=== PATIENT | female | born 1930 | race Asian ===

== ENCOUNTER → 2016-12-23 | Outpatient (CLI) | payer MEDICARE, OTHER ==
[~2016-12-23] MED LIST: ACAR50TA PO; ACLI400A2 IH; ALLO100T PO; AMLO-511 PO; CALC-789 PO; CARV25TA32 PO; DIGO125T71 PO; DSS100 PO; FURO20 PO; FURO40TA5 PO; HYDR25TA84 PO; MOME17N NS; MONT10TA21 PO; MULT1CAP32 PO; OMEP20CA10 PO; PROME5L PO; ROSU10 PO; SITA50 PO; WARF1TAB6 PO; WARF2 PO
[2016-12-23 09:03] LABS: BASOPHILS # (AUTO) 0.04 K/uL (0.00-0.20); EOSINOPHILS # (AUTO) 0.07 K/uL (0.00-0.70); EOSINOPHILS % (AUTO) 1.48 % (1.0-6.0); HEMATOCRIT 31.9 % (36-46); HEMOGLOBIN 10.4 g/dL (12.0-16.0); LYMPHOCYTES # (AUTO) 0.7 K/uL (1.0-4.8); LYMPHOCYTES % (AUTO) 16.2 % (22.0-44.0); MEAN CORPUSCULAR HEMOGLOBIN 28.5 pg (26.0-34.0); MEAN CORPUSCULAR HGB CONC 32.6 G/dL (31.0-37.0); MEAN CORPUSCULAR VOLUME 87 fL (80-100); MONOCYTES # (AUTO) 0.3 K/uL (0.1-1.0); NEUTROPHILS # (AUTO) 3.4 K/uL (1.8-7.7); NEUTROPHILS % (AUTO) 75.3 % (40.0-70.0); PLATELET COUNT (AUTO) 148 K/uL (150-450); RED BLOOD CELL COUNT(AUTO) 3.66 MIL/uL (4.00-5.20); RED CELL DISTRIBUTION WIDTH 17.9 % (11.5-14.5); WHITE BLOOD COUNT (AUTO) 4.5 K/uL (4.5-11.0)
[2016-12-23 09:14] LABS: RBC MORPHOLOGY COMMENT ABNORMAL RBC MORPH
[2016-12-23 09:31] LABS: HEMOGLOBIN A1C 6.8 % (4.5-6.2)
[2016-12-23 09:41] LABS: ALANINE AMINOTRANSFERASE 17 U/L (12-78); ALBUMIN 3.8 g/dL (3.4-5.0); ANION GAP 8 mmol/L (8-16); ASPARTATE AMINOTRANSFERASE 25 U/L (15-37); BILIRUBIN,TOTAL 0.6 mg/dL (0.1-1.0); CALCIUM, TOTAL 8.8 mg/dL (8.8-10.5); CARBON DIOXIDE 29 mmol/L (22-29); CHLORIDE 103 mmol/L (98-107); CHOL/HDL RATIO 2.6 (3.9-5.7); DIGOXIN < 0.20 ng/mL (0.90-2.00); GLOMERULAR FILTR. RATE CALC 33 mL/min (>60); POTASSIUM 4.2 mmol/L (3.5-5.1); SODIUM SERUM 140 mmol/L (136-145); THYROID STIMULATING HORMONE 2.56 uIU/mL (0.36-3.74); TOTAL PROTEIN, SERUM 8.3 g/dL (6.4-8.2); UREA NITROGEN, BLOOD 35 mg/dL (7-18)
[2016-12-23 09:53] LABS: URIC ACID 7.3 mg/dL (2.6-7.2)
== END | disposition home or self-care (01) ==
LOC: LABPV 07:12
PROVIDERS: ATTEND Internal Medicine Cardiovascular Disease
DX: I11.0 Hypertensive heart disease with heart failure (principal); I50.9 Heart failure, unspecified; E11.8 Type 2 diabetes mellitus with unspecified complications; E55.9 Vitamin D deficiency, unspecified
CPT/HCPCS: 82306; 83036; 84439; 84443; 84550

== ENCOUNTER 2017-01-31 15:18 | Inpatient (IN) | payer MEDICARE, OTHER ==
[~2017-01-31] VITALS: Ht 162.6 cm; Wt 60.5 kg
[~2017-01-31 15:18] MED LIST changes: -FURO40TA5 PO; -WARF2 PO
[2017-01-31 16:02] LABS: GLUCOSE COMMENT 1 Repeated; GLUCOSE,POINT OF CARE 181 MG/DL (70-110)
[2017-01-31 18:36] LABS: BASOPHILS % (AUTO) 0.6 % (0.0-2.0); EOSINOPHILS % (AUTO) 1.4 % (1.0-6.0); HEMATOCRIT 30.3 % (36-46); HEMOGLOBIN 9.6 g/dL (12.0-16.0); LYMPHOCYTES # (AUTO) 0.9 K/uL (1.0-4.8); LYMPHOCYTES % (AUTO) 16.5 % (22.0-44.0); MEAN CORPUSCULAR HEMOGLOBIN 28.2 pg (26.0-34.0); MEAN CORPUSCULAR HGB CONC 31.5 G/dL (31.0-37.0); MEAN CORPUSCULAR VOLUME 90 fL (80-100); MONOCYTES # (AUTO) 0.4 K/uL (0.1-1.0); MONOCYTES % (AUTO) 8.2 % (2.0-9.0); NEUTROPHILS # (AUTO) 3.8 K/uL (1.8-7.7); NEUTROPHILS % (AUTO) 73.3 % (40.0-70.0); PLATELET COUNT (AUTO) 215 K/uL (150-450); RED BLOOD CELL COUNT(AUTO) 3.38 MIL/uL (4.00-5.20); RED CELL DISTRIBUTION WIDTH 17.8 % (11.5-14.5); WHITE BLOOD COUNT (AUTO) 5.2 K/uL (4.5-11.0)
[2017-01-31 18:37] LABS: RBC MORPHOLOGY COMMENT ABNORMAL RBC MORPH
[2017-01-31 18:44] LABS: ANION GAP 8 mmol/L (8-16); CALCIUM, TOTAL 8.7 mg/dL (8.8-10.5); CARBON DIOXIDE 30 mmol/L (22-29); CHLORIDE 106 mmol/L (98-107); CREATININE 1.79 mg/dL (0.60-1.30); GLOMERULAR FILTR. RATE CALC 27 mL/min (>60); POTASSIUM 3.8 mmol/L (3.5-5.1); SODIUM SERUM 144 mmol/L (136-145); UREA NITROGEN, BLOOD 36 mg/dL (7-18)
[2017-01-31 18:55] LABS: ALANINE AMINOTRANSFERASE 26 U/L (12-78); ALBUMIN 3.7 g/dL (3.4-5.0); ASPARTATE AMINOTRANSFERASE 21 U/L (15-37); BILIRUBIN,TOTAL 0.6 mg/dL (0.1-1.0); CREATINE KINASE, TOTAL 48 U/L (26-192); TOTAL PROTEIN, SERUM 8.4 g/dL (6.4-8.2)
[2017-01-31 19:01] LABS: B-TYPE NATRIURETIC PEPTIDE 436 pg/mL (0-100)
[2017-01-31 19:07] LABS: INR 2.2 (0.9-1.1); PROTHROMBIN TIME 23.5 SEC (9.4-11.6)
[2017-01-31 19:09] LABS: DIGOXIN < 0.20 ng/mL (0.90-2.00)
[2017-01-31] MEDS ORDERED: FUROSEMIDE 40 MG/4 ML VIAL IVP ONE (19:45)
[2017-01-31 20:15] LABS: APPEARANCE,URINE CLOUDY (CLEAR); GLUCOSE, URINE (UA) NEGATIVE (NEGATIVE); KETONES,URINE NEGATIVE (NEGATIVE); LEUKOCYTE ESTERASE ,URINE TRACE (NEGATIVE); OCCULT BLOOD,URINE NEGATIVE (NEGATIVE); PH,URINE 5.5 (5.0-8.0); PROTEIN,URINE NEGATIVE (NEGATIVE)
[2017-01-31 20:17] LABS: ADD UA MICROSCOPIC YES
[2017-01-31 20:29] LABS: SQUAMOUS EPITHELIAL CELL,UR Few /LPF (None Seen)
[2017-01-31 20:31] LABS: RBC,URINE 0-2 /HPF (0-2)
[2017-01-31] MEDS ORDERED: 0.9% SODIUM CHLORIDE 10 ML SYRINGE IVP PRN (21:15)
[2017-01-31] MEDS ORDERED: ONDANSETRON HCL 4 MG/2 ML VIAL IVP PRN (21:15)
[2017-01-31] MEDS ORDERED: ACETAMINOPHEN 325 MG TABLET PO PRN (21:15)
[2017-01-31] MEDS ORDERED: PROMETHAZINE HCL 6.25 MG/5 ML SYRUP ORAL.SYG PO PRN ×2 (23:15→23:30)
[2017-01-31 23:47] VITALS: BP 139/66
[2017-02-01] MEDS: ZOLPIDEM TARTRATE 5 MG TABLET PO PRN ×2 (00:25→23:02)
[2017-02-01] MEDS: FUROSEMIDE 20 MG/2 ML VIAL IVP SCH ×3 (00:30→20:18)
[2017-02-01 04:44] VITALS: BP 142/65
[2017-02-01] MEDS: ACARBOSE 50 MG TABLET PO SCH ×3 (06:31→17:53)
[2017-02-01 06:55] LABS: BASOPHILS % (AUTO) 0.6 % (0.0-2.0); HEMATOCRIT 28.7 % (36-46); HEMOGLOBIN 9.1 g/dL (12.0-16.0); LYMPHOCYTES # (AUTO) 0.9 K/uL (1.0-4.8); LYMPHOCYTES % (AUTO) 17.2 % (22.0-44.0); MEAN CORPUSCULAR HEMOGLOBIN 28.4 pg (26.0-34.0); MEAN CORPUSCULAR HGB CONC 31.6 G/dL (31.0-37.0); MEAN CORPUSCULAR VOLUME 90 fL (80-100); MONOCYTES # (AUTO) 0.4 K/uL (0.1-1.0); MONOCYTES % (AUTO) 7.2 % (2.0-9.0); NEUTROPHILS # (AUTO) 3.8 K/uL (1.8-7.7); PLATELET COUNT (AUTO) 197 K/uL (150-450); RED BLOOD CELL COUNT(AUTO) 3.19 MIL/uL (4.00-5.20); RED CELL DISTRIBUTION WIDTH 17.7 % (11.5-14.5); WHITE BLOOD COUNT (AUTO) 5.2 K/uL (4.5-11.0)
[2017-02-01 07:07] LABS: INR 2.2 (0.9-1.1); PROTHROMBIN TIME 23.4 SEC (9.4-11.6)
[2017-02-01 07:31] LABS: ALBUMIN 3.5 g/dL (3.4-5.0); BILIRUBIN,TOTAL 0.7 mg/dL (0.1-1.0); CALCIUM, TOTAL 8.6 mg/dL (8.8-10.5); CREATININE 1.77 mg/dL (0.60-1.30); POTASSIUM 3.8 mmol/L (3.5-5.1); TOTAL PROTEIN, SERUM 7.7 g/dL (6.4-8.2)
[2017-02-01 07:43] VITALS: BP 139/82
[2017-02-01] MEDS: HydrALAZINE HCL 25 MG TABLET PO SCH ×2 (08:55→20:19)
[2017-02-01] MEDS: MOMETASONE FUROATE 50 MCG/SPRAY 17 GM NASAL SPRAY NASAL SCH ×2 (08:55→20:18)
[2017-02-01] MEDS: CALCIUM OYSTER SHELL 250 MG-VIT D3 125 UNITS TABLET PO SCH (08:56)
[2017-02-01] MEDS: ROSUVASTATIN CALCIUM 10 MG TABLET PO SCH (08:56)
[2017-02-01] MEDS: ALLOPURINOL 100 MG TABLET PO SCH (08:56)
[2017-02-01] MEDS: MULTIVITAMINS, THERAPEUTIC TABLET PO SCH (08:56)
[2017-02-01] MEDS: DOCUSATE SODIUM 100 MG CAPSULE PO SCH (08:56)
[2017-02-01] MEDS: DIGOXIN 125 MCG TABLET PO SCH (08:56)
[2017-02-01] MEDS: AmLODIPine BESYLATE 5 MG TABLET PO SCH (08:56)
[2017-02-01] MEDS: OMEPRAZOLE 20 MG CAPSULE PO SCH (08:56)
[2017-02-01] MEDS: SitaGLIPtin PHOSPHATE 50 MG TABLET PO SCH (08:56)
[2017-02-01] MEDS: CARVEDILOL 25 MG TABLET PO SCH ×2 (08:56→20:18)
[2017-02-01] MEDS ORDERED: FUROSEMIDE 40 MG/4 ML VIAL IVP SCH (09:00)
[2017-02-01] MEDS ORDERED: ACLIDINIUM BROMIDE 400 MCG IH SCH (09:00)
[2017-02-01 11:22] VITALS: BP 118/70
[2017-02-01 15:43] VITALS: BP 139/59
[2017-02-01] MEDS: WARFARIN SODIUM 1 MG TABLET PO SCH (17:53)
[2017-02-01 19:49] VITALS: BP 149/69
[2017-02-01] MEDS: MONTELUKAST SODIUM 10 MG TABLET PO SCH (20:18)
[2017-02-01 23:50] VITALS: BP 125/61
[2017-02-02] VITALS (7 sets, daily range): BP systolic 132–143; BP diastolic 54–78
[2017-02-02] MEDS: ACARBOSE 50 MG TABLET PO SCH ×3 (06:32→17:43)
[2017-02-02 06:40] LABS: BASOPHILS % (AUTO) 0.2 % (0.0-2.0); EOSINOPHILS % (AUTO) 1.8 % (1.0-6.0); HEMATOCRIT 28.7 % (36-46); LYMPHOCYTES # (AUTO) 0.8 K/uL (1.0-4.8); LYMPHOCYTES % (AUTO) 14.9 % (22.0-44.0); MEAN CORPUSCULAR HEMOGLOBIN 28.5 pg (26.0-34.0); MEAN CORPUSCULAR HGB CONC 31.3 G/dL (31.0-37.0); MEAN CORPUSCULAR VOLUME 91 fL (80-100); MONOCYTES # (AUTO) 0.4 K/uL (0.1-1.0); MONOCYTES % (AUTO) 6.8 % (2.0-9.0); NEUTROPHILS # (AUTO) 4.2 K/uL (1.8-7.7); NEUTROPHILS % (AUTO) 76.3 % (40.0-70.0); PLATELET COUNT (AUTO) 176 K/uL (150-450); RED BLOOD CELL COUNT(AUTO) 3.16 MIL/uL (4.00-5.20); RED CELL DISTRIBUTION WIDTH 17.2 % (11.5-14.5); WHITE BLOOD COUNT (AUTO) 5.5 K/uL (4.5-11.0)
[2017-02-02 06:48] LABS: PROTHROMBIN TIME 21.2 SEC (9.4-11.6)
[2017-02-02 06:59] LABS: HEMOGLOBIN A1C 6.7 % (4.5-6.2)
[2017-02-02 07:02] LABS: ALBUMIN 3.4 g/dL (3.4-5.0); BILIRUBIN,TOTAL 0.7 mg/dL (0.1-1.0); CALCIUM, TOTAL 8.6 mg/dL (8.8-10.5); CHOL/HDL RATIO 2.9 (3.9-5.7); CREATININE 1.56 mg/dL (0.60-1.30); POTASSIUM 3.8 mmol/L (3.5-5.1); TOTAL PROTEIN, SERUM 7.7 g/dL (6.4-8.2)
[2017-02-02] MEDS: DOCUSATE SODIUM 100 MG CAPSULE PO SCH (08:55)
[2017-02-02] MEDS: MULTIVITAMINS, THERAPEUTIC TABLET PO SCH (08:56)
[2017-02-02] MEDS: DIGOXIN 125 MCG TABLET PO SCH (08:56)
[2017-02-02] MEDS: AmLODIPine BESYLATE 5 MG TABLET PO SCH (08:56)
[2017-02-02] MEDS: FUROSEMIDE 20 MG/2 ML VIAL IVP SCH ×2 (08:56→20:18)
[2017-02-02] MEDS: OMEPRAZOLE 20 MG CAPSULE PO SCH (08:56)
[2017-02-02] MEDS: MOMETASONE FUROATE 50 MCG/SPRAY 17 GM NASAL SPRAY NASAL SCH ×2 (08:56→20:19)
[2017-02-02] MEDS: CALCIUM OYSTER SHELL 250 MG-VIT D3 125 UNITS TABLET PO SCH (08:57)
[2017-02-02] MEDS: SitaGLIPtin PHOSPHATE 50 MG TABLET PO SCH (08:57)
[2017-02-02] MEDS: CARVEDILOL 25 MG TABLET PO SCH ×2 (10:40→21:23)
[2017-02-02] MEDS: ROSUVASTATIN CALCIUM 10 MG TABLET PO SCH (10:40)
[2017-02-02] MEDS: HydrALAZINE HCL 25 MG TABLET PO SCH ×2 (10:40→21:23)
[2017-02-02] MEDS: ALLOPURINOL 100 MG TABLET PO SCH (13:11)
[2017-02-02] MEDS: WARFARIN SODIUM 1 MG TABLET PO SCH (17:43)
[2017-02-02] MEDS: MONTELUKAST SODIUM 10 MG TABLET PO SCH (20:18)
[2017-02-02] MEDS ORDERED: SODIUM CHLORIDE 0.9% 250 ML IV ONE (20:27)
[2017-02-02] MEDS: CefTRIAXone 1 GM/DEXTROSE 50 ML IV SCH (20:35)
[2017-02-02] MEDS: ZOLPIDEM TARTRATE 5 MG TABLET PO PRN (23:12)
[2017-02-03] VITALS (7 sets, daily range): BP systolic 125–154; BP diastolic 59–82
[2017-02-03] MEDS: ACARBOSE 50 MG TABLET PO SCH ×3 (06:25→16:55)
[2017-02-03 06:40] LABS: BASOPHILS % (AUTO) 0.2 % (0.0-2.0); EOSINOPHILS % (AUTO) 1.8 % (1.0-6.0); HEMATOCRIT 29.2 % (36-46); HEMOGLOBIN 9.1 g/dL (12.0-16.0); LYMPHOCYTES # (AUTO) 0.8 K/uL (1.0-4.8); LYMPHOCYTES % (AUTO) 13.2 % (22.0-44.0); MEAN CORPUSCULAR HEMOGLOBIN 28.3 pg (26.0-34.0); MEAN CORPUSCULAR HGB CONC 31.1 G/dL (31.0-37.0); MEAN CORPUSCULAR VOLUME 91 fL (80-100); MONOCYTES # (AUTO) 0.4 K/uL (0.1-1.0); MONOCYTES % (AUTO) 6.1 % (2.0-9.0); NEUTROPHILS # (AUTO) 4.5 K/uL (1.8-7.7); NEUTROPHILS % (AUTO) 78.7 % (40.0-70.0); PLATELET COUNT (AUTO) 180 K/uL (150-450); WHITE BLOOD COUNT (AUTO) 5.8 K/uL (4.5-11.0)
[2017-02-03 06:49] LABS: INR 1.7 (0.9-1.1); PROTHROMBIN TIME 18.4 SEC (9.4-11.6)
[2017-02-03 06:56] LABS: ALBUMIN 3.4 g/dL (3.4-5.0); BILIRUBIN,TOTAL 0.4 mg/dL (0.1-1.0); CALCIUM, TOTAL 8.8 mg/dL (8.8-10.5); CREATININE 1.59 mg/dL (0.60-1.30); POTASSIUM 3.9 mmol/L (3.5-5.1); TOTAL PROTEIN, SERUM 7.9 g/dL (6.4-8.2)
[2017-02-03] MEDS: FUROSEMIDE 20 MG/2 ML VIAL IVP SCH (08:44)
[2017-02-03] MEDS: MULTIVITAMINS, THERAPEUTIC TABLET PO SCH (08:47)
[2017-02-03] MEDS: OMEPRAZOLE 20 MG CAPSULE PO SCH (08:48)
[2017-02-03] MEDS: CARVEDILOL 25 MG TABLET PO SCH ×2 (08:48→20:43)
[2017-02-03] MEDS: DIGOXIN 125 MCG TABLET PO SCH (08:48)
[2017-02-03] MEDS: AmLODIPine BESYLATE 5 MG TABLET PO SCH (08:48)
[2017-02-03] MEDS: HydrALAZINE HCL 25 MG TABLET PO SCH ×2 (08:49→20:43)
[2017-02-03] MEDS: SitaGLIPtin PHOSPHATE 50 MG TABLET PO SCH (08:50)
[2017-02-03] MEDS: DOCUSATE SODIUM 100 MG CAPSULE PO SCH (08:50)
[2017-02-03] MEDS: ROSUVASTATIN CALCIUM 10 MG TABLET PO SCH (08:50)
[2017-02-03] MEDS: CALCIUM OYSTER SHELL 250 MG-VIT D3 125 UNITS TABLET PO SCH (08:51)
[2017-02-03] MEDS: ALLOPURINOL 100 MG TABLET PO SCH (08:52)
[2017-02-03] MEDS: MOMETASONE FUROATE 50 MCG/SPRAY 17 GM NASAL SPRAY NASAL SCH ×2 (09:00→21:55)
[2017-02-03 13:37] LABS: GLUCOSE,POINT OF CARE 123 MG/DL (70-110)
[2017-02-03 13:38] LABS: GLUCOSE COMMENT 1 Received Meds; GLUCOSE,POINT OF CARE 161 MG/DL (70-110)
[2017-02-03 13:38] LABS: GLUCOSE,POINT OF CARE 90 MG/DL (70-110)
[2017-02-03] MEDS: WARFARIN SODIUM 1 MG TABLET PO SCH (16:55)
[2017-02-03] MEDS: MONTELUKAST SODIUM 10 MG TABLET PO SCH (20:14)
[2017-02-03] MEDS: CefTRIAXone 1 GM/DEXTROSE 50 ML IV SCH (21:50)
[2017-02-03] MEDS: FUROSEMIDE 40 MG/4 ML VIAL IVP SCH (21:50)
[2017-02-03] MEDS: ZOLPIDEM TARTRATE 5 MG TABLET PO PRN (23:27)
[2017-02-04 04:49] VITALS: BP 144/70
[2017-02-04] MEDS: ACARBOSE 50 MG TABLET PO SCH ×3 (06:13→18:23)
[2017-02-04 07:35] LABS: BASOPHILS % (AUTO) 0.3 % (0.0-2.0); EOSINOPHILS % (AUTO) 1.8 % (1.0-6.0); HEMATOCRIT 29.3 % (36-46); HEMOGLOBIN 9.1 g/dL (12.0-16.0); LYMPHOCYTES # (AUTO) 0.8 K/uL (1.0-4.8); LYMPHOCYTES % (AUTO) 15.1 % (22.0-44.0); MEAN CORPUSCULAR HEMOGLOBIN 28.3 pg (26.0-34.0); MEAN CORPUSCULAR HGB CONC 31.1 G/dL (31.0-37.0); MEAN CORPUSCULAR VOLUME 91 fL (80-100); MONOCYTES # (AUTO) 0.3 K/uL (0.1-1.0); MONOCYTES % (AUTO) 6.2 % (2.0-9.0); NEUTROPHILS # (AUTO) 4.1 K/uL (1.8-7.7); NEUTROPHILS % (AUTO) 76.6 % (40.0-70.0); PLATELET COUNT (AUTO) 169 K/uL (150-450); RED BLOOD CELL COUNT(AUTO) 3.22 MIL/uL (4.00-5.20); RED CELL DISTRIBUTION WIDTH 17.2 % (11.5-14.5); WHITE BLOOD COUNT (AUTO) 5.3 K/uL (4.5-11.0)
[2017-02-04 07:41] LABS: INR 1.6 (0.9-1.1); PROTHROMBIN TIME 16.4 SEC (9.4-11.6)
[2017-02-04 07:52] VITALS: BP 139/75
[2017-02-04 07:57] LABS: ALBUMIN 3.4 g/dL (3.4-5.0); BILIRUBIN,TOTAL 0.5 mg/dL (0.1-1.0); CALCIUM, TOTAL 8.8 mg/dL (8.8-10.5); CREATININE 1.56 mg/dL (0.60-1.30); POTASSIUM 4.3 mmol/L (3.5-5.1); TOTAL PROTEIN, SERUM 7.5 g/dL (6.4-8.2)
[2017-02-04] MEDS: FUROSEMIDE 40 MG/4 ML VIAL IVP SCH ×2 (08:27→20:04)
[2017-02-04] MEDS: MULTIVITAMINS, THERAPEUTIC TABLET PO SCH (08:28)
[2017-02-04] MEDS: MOMETASONE FUROATE 50 MCG/SPRAY 17 GM NASAL SPRAY NASAL SCH ×2 (08:28→20:04)
[2017-02-04] MEDS: DOCUSATE SODIUM 100 MG CAPSULE PO SCH (08:28)
[2017-02-04] MEDS: HydrALAZINE HCL 25 MG TABLET PO SCH ×2 (08:28→22:07)
[2017-02-04] MEDS: AmLODIPine BESYLATE 5 MG TABLET PO SCH (08:28)
[2017-02-04] MEDS: CALCIUM OYSTER SHELL 250 MG-VIT D3 125 UNITS TABLET PO SCH (08:29)
[2017-02-04] MEDS: CARVEDILOL 25 MG TABLET PO SCH ×2 (08:29→22:07)
[2017-02-04] MEDS: ALLOPURINOL 100 MG TABLET PO SCH (08:29)
[2017-02-04] MEDS: ROSUVASTATIN CALCIUM 10 MG TABLET PO SCH (08:31)
[2017-02-04] MEDS: SitaGLIPtin PHOSPHATE 50 MG TABLET PO SCH (08:32)
[2017-02-04 09:39] LABS: RBC MORPHOLOGY COMMENT ABNORMAL RBC MORPH
[2017-02-04] MEDS: DIGOXIN 125 MCG TABLET PO SCH (09:58)
[2017-02-04] MEDS: OMEPRAZOLE 20 MG CAPSULE PO SCH (09:58)
[2017-02-04 11:10] VITALS: BP 113/50
[2017-02-04 15:22] VITALS: BP 123/59
[2017-02-04] MEDS: WARFARIN SODIUM 2 MG TABLET PO SCH (18:24)
[2017-02-04 19:43] VITALS: BP 151/66
[2017-02-04] MEDS: MONTELUKAST SODIUM 10 MG TABLET PO SCH (20:04)
[2017-02-04] MEDS: CefTRIAXone 1 GM/DEXTROSE 50 ML IV SCH (20:06)
[2017-02-04 22:05] VITALS: BP 153/61
[2017-02-04] MEDS: ZOLPIDEM TARTRATE 5 MG TABLET PO PRN (22:45)
[2017-02-05 00:11] VITALS: BP 136/61
[2017-02-05 04:38] VITALS: BP 128/65
[2017-02-05 06:12] LABS: BASOPHILS % (AUTO) 0.6 % (0.0-2.0); EOSINOPHILS % (AUTO) 2.3 % (1.0-6.0); HEMATOCRIT 28.1 % (36-46); HEMOGLOBIN 8.8 g/dL (12.0-16.0); LYMPHOCYTES # (AUTO) 0.8 K/uL (1.0-4.8); LYMPHOCYTES % (AUTO) 15.6 % (22.0-44.0); MEAN CORPUSCULAR HEMOGLOBIN 28.4 pg (26.0-34.0); MEAN CORPUSCULAR HGB CONC 31.2 G/dL (31.0-37.0); MEAN CORPUSCULAR VOLUME 91 fL (80-100); MONOCYTES # (AUTO) 0.5 K/uL (0.1-1.0); MONOCYTES % (AUTO) 9.4 % (2.0-9.0); NEUTROPHILS # (AUTO) 3.7 K/uL (1.8-7.7); NEUTROPHILS % (AUTO) 72.1 % (40.0-70.0); PLATELET COUNT (AUTO) 153 K/uL (150-450); RED BLOOD CELL COUNT(AUTO) 3.09 MIL/uL (4.00-5.20); RED CELL DISTRIBUTION WIDTH 17.4 % (11.5-14.5); WHITE BLOOD COUNT (AUTO) 5.2 K/uL (4.5-11.0)
[2017-02-05 06:13] LABS: INR 1.4 (0.9-1.1); PROTHROMBIN TIME 15.3 SEC (9.4-11.6)
[2017-02-05] MEDS: ACARBOSE 50 MG TABLET PO SCH ×3 (06:17→17:28)
[2017-02-05 06:29] LABS: ALBUMIN 3.1 g/dL (3.4-5.0); BILIRUBIN,TOTAL 0.3 mg/dL (0.1-1.0); CALCIUM, TOTAL 8.5 mg/dL (8.8-10.5); CREATININE 1.54 mg/dL (0.60-1.30)
[2017-02-05 06:46] LABS: RBC MORPHOLOGY COMMENT ABNORMAL RBC MORPH
[2017-02-05 07:34] VITALS: BP 146/72
[2017-02-05] MEDS: MOMETASONE FUROATE 50 MCG/SPRAY 17 GM NASAL SPRAY NASAL SCH (07:48)
[2017-02-05] MEDS: FUROSEMIDE 40 MG/4 ML VIAL IVP SCH (07:48)
[2017-02-05] MEDS: OMEPRAZOLE 20 MG CAPSULE PO SCH (07:48)
[2017-02-05] MEDS: DOCUSATE SODIUM 100 MG CAPSULE PO SCH (07:49)
[2017-02-05] MEDS: AmLODIPine BESYLATE 5 MG TABLET PO SCH (07:49)
[2017-02-05] MEDS: HydrALAZINE HCL 25 MG TABLET PO SCH (07:49)
[2017-02-05] MEDS: DIGOXIN 125 MCG TABLET PO SCH (07:49)
[2017-02-05] MEDS: MULTIVITAMINS, THERAPEUTIC TABLET PO SCH (07:49)
[2017-02-05] MEDS: ROSUVASTATIN CALCIUM 10 MG TABLET PO SCH (07:50)
[2017-02-05] MEDS: SitaGLIPtin PHOSPHATE 50 MG TABLET PO SCH (07:50)
[2017-02-05] MEDS: CARVEDILOL 25 MG TABLET PO SCH (07:50)
[2017-02-05] MEDS: CALCIUM OYSTER SHELL 250 MG-VIT D3 125 UNITS TABLET PO SCH (07:50)
[2017-02-05] MEDS: ALLOPURINOL 100 MG TABLET PO SCH (07:51)
[2017-02-05 11:28] VITALS: BP 156/52
[2017-02-05] MEDS ORDERED: WARF1TAB6 PO (14:21)
[2017-02-05] MEDS ORDERED: FURO40TA5 PO (14:22)
[2017-02-05 15:19] VITALS: BP 157/70
[2017-02-05] MEDS: WARFARIN SODIUM 2 MG TABLET PO SCH (17:28)
[2017-03-09] MEDS ORDERED: WARF2 PO (11:09)
== END 2017-02-05 18:30 | disposition home or self-care (01) | DRG 194 ==
LOC: EMS 15:22 → 5N 21:25 → 5S 02-02 05:01 → 5N 02-02 05:01
PROVIDERS: ADMIT Family Medicine; ATTEND Family Medicine
DX: I13.0 Hypertensive heart and chronic kidney disease with heart failure and stage 1 through stage 4 chronic kidney disease, or unspecified chronic kidney disease (principal); E11.22 Type 2 diabetes mellitus with diabetic chronic kidney disease; I27.2 Other secondary pulmonary hypertension; I50.33 Acute on chronic diastolic (congestive) heart failure; I48.2 Chronic atrial fibrillation; N18.3 Chronic kidney disease, stage 3 (moderate); E78.5 Hyperlipidemia, unspecified; I25.10 Atherosclerotic heart disease of native coronary artery without angina pectoris; J44.9 Chronic obstructive pulmonary disease, unspecified; M54.9 Dorsalgia, unspecified; M10.9 Gout, unspecified; D64.9 Anemia, unspecified; Z95.2 Presence of prosthetic heart valve; Z79.01 Long term (current) use of anticoagulants; Z79.899 Other long term (current) drug therapy; Z98.42 Cataract extraction status, left eye; Z95.1 Presence of aortocoronary bypass graft; Z98.41 Cataract extraction status, right eye; Z86.018 Personal history of other benign neoplasm; I50.32 Chronic diastolic (congestive) heart failure
CPT/HCPCS: 82962; 83036; 83735; 87040; 87086; 93005; 93306; 96374; 97116; 97162; 99285; J0696; J1940; J7050

== ENCOUNTER → 2017-02-18 | Outpatient (CLI) | payer MEDICARE, OTHER ==
[~2017-02-18] MED LIST changes: -FURO20 PO; +FURO40TA5 PO; +HYDR25 PO; -HYDR25TA84 PO
[2017-02-18 08:58] LABS: BASOPHILS % (AUTO) 0.1 % (0.0-2.0); EOSINOPHILS % (AUTO) 1.1 % (1.0-6.0); HEMATOCRIT 28.3 % (36-46); HEMOGLOBIN 8.8 g/dL (12.0-16.0); LYMPHOCYTES # (AUTO) 0.5 K/uL (1.0-4.8); LYMPHOCYTES % (AUTO) 8.4 % (22.0-44.0); MEAN CORPUSCULAR HEMOGLOBIN 28.5 pg (26.0-34.0); MEAN CORPUSCULAR VOLUME 92 fL (80-100); MONOCYTES # (AUTO) 0.3 K/uL (0.1-1.0); MONOCYTES % (AUTO) 4.5 % (2.0-9.0); NEUTROPHILS # (AUTO) 5.4 K/uL (1.8-7.7); NEUTROPHILS % (AUTO) 85.9 % (40.0-70.0); PLATELET COUNT (AUTO) 184 K/uL (150-450); RED BLOOD CELL COUNT(AUTO) 3.09 MIL/uL (4.00-5.20); RED CELL DISTRIBUTION WIDTH 18.3 % (11.5-14.5); WHITE BLOOD COUNT (AUTO) 6.3 K/uL (4.5-11.0)
[2017-02-18 09:07] LABS: ALANINE AMINOTRANSFERASE 24 U/L (12-78); ALBUMIN 3.9 g/dL (3.4-5.0); ANION GAP 8 mmol/L (8-16); ASPARTATE AMINOTRANSFERASE 21 U/L (15-37); BILIRUBIN,TOTAL 0.9 mg/dL (0.1-1.0); CARBON DIOXIDE 31 mmol/L (22-29); CHLORIDE 107 mmol/L (98-107); CREATININE 1.85 mg/dL (0.60-1.30); GLOMERULAR FILTR. RATE CALC 26 mL/min (>60); POTASSIUM 3.8 mmol/L (3.5-5.1); SODIUM SERUM 146 mmol/L (136-145); THYROID STIMULATING HORMONE 2.15 uIU/mL (0.36-3.74); TOTAL PROTEIN, SERUM 8.5 g/dL (6.4-8.2); UREA NITROGEN, BLOOD 45 mg/dL (7-18)
[2017-02-18 09:10] LABS: B-TYPE NATRIURETIC PEPTIDE 345 pg/mL (0-100)
[2017-02-18 09:11] LABS: DIGOXIN < 0.20 ng/mL (0.90-2.00)
[2017-02-18 09:17] LABS: HEMOGLOBIN A1C 6.2 % (4.5-6.2)
[2017-02-18 12:10] LABS: RBC MORPHOLOGY COMMENT ABNORMAL RBC MORPH
== END | disposition home or self-care (01) ==
LOC: LABPV 07:34
PROVIDERS: ATTEND Internal Medicine Cardiovascular Disease
DX: I11.0 Hypertensive heart disease with heart failure (principal); I50.9 Heart failure, unspecified; E11.8 Type 2 diabetes mellitus with unspecified complications; E55.9 Vitamin D deficiency, unspecified
CPT/HCPCS: 82306; 83036; 83735; 84439; 84443